=== PATIENT | male | born 1975 | race Caucasian/White ===

== ENCOUNTER 2017-11-26 04:39 | Emergency (ER) | payer SELFPAY ==
[~2017-11-26] VITALS: Ht 160 cm; Wt 81.3 kg
[2017-11-26 04:50] VITALS: Ht 160 cm; Wt 81.3 kg
[2017-11-26 07:47] VITALS: BP 121/81
== END 2017-11-26 07:47 | disposition home or self-care (01) ==
LOC: ED 04:39
DX: J11.1 Influenza due to unidentified influenza virus with other respiratory manifestations (principal); Z88.6 Allergy status to analgesic agent
CPT/HCPCS: Q0162

== ENCOUNTER 2017-11-28 02:39 | Emergency (ER) | payer SELFPAY ==
[~2017-11-28] VITALS: Ht 165.1 cm; Wt 80.7 kg
[2017-11-28 02:45] VITALS: Ht 165.1 cm; Wt 80.7 kg
[2017-11-28 06:49] VITALS: BP 115/81
== END 2017-11-28 06:49 | disposition left against medical advice (07) ==
LOC: ED 02:39
DX: Z53.21 Procedure and treatment not carried out due to patient leaving prior to being seen by health care provider (principal)